=== PATIENT | female | born 1975 | race Caucasian/White ===

== ENCOUNTER 2022-12-26 13:59 | Outpatient (OUT) | payer OTHER, SELFPAY ==
--- NOTE | 2022-12-26 14:19 | PM.CN ---
Consult Note: HPI Data of Consult Patient: known to practice within the last 3 years Consult date: 12/26/22 Requesting Physician: Yuriy Goodson MD Primary Care Provider: Non-Staff Physician, Consult Narrative Reason for consult: Low back, bilateral leg pain Narrative: this is a pleasant 47-year-old female who presents for assessment. I will that she had significant relief after her recent lumbar epidural steroid injection, though she still notes persistence of pain throughout her low back that makes it difficult to complete her activities of daily life. She has undergone a lumbar fusion previously. We previously have discussed spinal cord stimulation therapy. She denies adverse medication side effects loss of bowel or bladder control. cc:: CC: Yuriy Goodson MD Review of Systems ROS Status of ROS 10 or more systems reviewed and unremarkable except as noted in history and below Meds Home Medications and Allergies Home Medications Medication Instructions Recorded Confirmed Type celecoxib 200 mg capsule (Celebrex) 200 mg PO BID 12/26/22 12/26/22 History fenofibrate nanocrystallized 145 145 mg PO DAILY 12/26/22 12/26/22 History mg tablet fluticasone furoate 200 1 inh inhalation DAILY 12/26/22 12/26/22 History mcg-vilanterol 25 mcg/dose inhalation powder (Breo Ellipta) hormone replacement pill {compound) 12/26/22 History montelukast 10 mg tablet 10 mg PO DAILY 12/26/22 12/26/22 History tirzepatide 5 mg/0.5 mL 5 mg subcut QWEEK 12/26/22 12/26/22 History subcutaneous pen injector (Mounjaro) vilazodone 40 mg tablet 40 mg PO DAILY 12/26/22 12/26/22 History Allergies Allergy/AdvReac Type Severity Reaction Status Date / Time No Known Drug Allergies Allergy Verified 12/26/22 13:30 Exam Constitutional Common normals: no apparent distress, oriented x3 and healthy appearing Respiratory Common normals: normal respiratory effort Effort & inspection: able to speak in complete sentences Back & Pelvis Other: this is a pleasant 47-year-old female who presents for assessment. I would that she had significant relief after her recent lumbar epidural steroid injection, though she still is quite debilitated due to her lumbar postlaminectomy syndrome. We have previously discussed that she would be an appropriate candidate for spinal cord stim ablation therapy, given her surgical history, multiple attempts at conservative measures, and desire to return to more significant activities of daily living. At this point, I will have her undergo psychiatric evaluation with the intention of proceeding with a spinal cord stim trial. She is in agreement with this plan. Vacations were reviewed, and no changes were made at this time. She will follow up after the evaluation is complete. Extremity Common normals: normal to inspection Neuro Common normals: oriented x3, CN's II-XII intact bilaterally and no focal motor deficits Psych Common normals: mental status grossly normal and cooperative
== END 2022-12-26 14:00 ==
LOC: PM 02-02 14:00
PROVIDERS: Visit Provider Anesthesiology
DX: M54.50 Low back pain, unspecified (principal); M79.605 Pain in left leg; M79.604 Pain in right leg
CPT/HCPCS: G0463

== ENCOUNTER 2023-02-27 11:59 | Outpatient (OUT) | payer OTHER, SELFPAY ==
--- NOTE | 2023-02-27 13:02 | PM.CN ---
Consult Note: HPI Data of Consult Patient: known to practice within the last 3 years Consult date: 02/27/23 Requesting Physician: Yuriy Goodson MD Primary Care Provider: Non-Staff Physician, Consult Narrative Reason for consult: low back, bilateral lower extremity pain Narrative: this is a pleasant 48-year-old female who presents for assessment. She notes worsening pain throughout her low back that radiates into the bilateral lower extremities. This is the same type of pain that she has been dealing with for several years, and she historically has had significant relief with lumbar epidural steroid injections periodically. This was most recently done in October of this year. This provided greater than eighty percent relief for over three months. She continues to engage in the course of provider directed home exercises, which she has done for over six weeks. She utilizes Celebrex, which provides mild relief. She recently underwent psychiatric evaluation with the anticipation of undergoing a spinal cord stimulator trial, and she was given a green light from a psychiatric perspective. She otherwise denies any medication side effects or loss of bowel or bladder control. cc:: CC: Yuriy Goodson MD Review of Systems ROS Status of ROS 10 or more systems reviewed and unremarkable except as noted in history and below Meds Home Medications and Allergies Home Medications Medication Instructions Recorded Confirmed Type celecoxib 200 mg capsule (Celebrex) 200 mg PO BID 12/26/22 12/26/22 History fenofibrate nanocrystallized 145 145 mg PO DAILY 12/26/22 12/26/22 History mg tablet fluticasone furoate 200 1 inh inhalation DAILY 12/26/22 12/26/22 History mcg-vilanterol 25 mcg/dose inhalation powder (Breo Ellipta) hormone replacement pill {compound) 12/26/22 History montelukast 10 mg tablet 10 mg PO DAILY 12/26/22 12/26/22 History tirzepatide 5 mg/0.5 mL 5 mg subcut QWEEK 12/26/22 12/26/22 History subcutaneous pen injector (Mounjaro) vilazodone 40 mg tablet 40 mg PO DAILY 12/26/22 12/26/22 History Allergies Allergy/AdvReac Type Severity Reaction Status Date / Time No Known Drug Allergies Allergy Verified 12/26/22 13:30 Exam Constitutional Common normals: no apparent distress, oriented x3 and healthy appearing Respiratory Common normals: normal respiratory effort Effort & inspection: able to speak in complete sentences Back & Pelvis Other: tenderness to palpation throughout the lumbar spine and paraspinal musculaature. Pain is elicited with fllexion, extension, and lateral rotation of the lumbar spine. Strength is noted to be unremarkable throughout the bilateral lower extremities except for decreased strength rated at 4/5 in the bilateral quadriceps femoris, anterior tibialis. sensation noted to be unremarkable throughout the bilateral lower extremities for dysesthesia in the bilateral L4, L5 dermatomal distributions. Coordination remains intact. Gait remains nonantalgic. Extremity Common normals: normal to inspection Neuro Common normals: oriented x3, CN's II-XII intact bilaterally and no focal motor deficits Psych Common normals: mental status grossly normal and cooperative Assessment and Plan Assessment and Plan (1) Lumbar stenosis with neurogenic claudication: (2) Lumbar postlaminectomy syndrome: Plan this is a pleasant 48-year-old female who presents for assessment. She has failed physical and medical modalities, as listed above. She continues to have significant pain that radiates from the low back and bilateral lower extremities. She has failed conservative measures, as noted above. Given her symptomatology of imaging findings, coupled with her previous relief, it is prudent to repeat bilateral L5-S1 transforaminal epidural steroid injections to provide analgesia. She is in agreement with this plan. She is also a good candidate for spinal cord stimulation trial, given her postlaminectomy syndrome and surgical history. She is in agreement with this plan. Medications were reviewed. I will continue her Celebrex and trial Flexeril 10 mg 3 times a day when necessary. She expressed understanding. She will follow up after the procedure is completed.
== END 2023-02-27 12:00 | disposition home or self-care (01) ==
LOC: PM 11:59
PROVIDERS: Visit Provider Anesthesiology
DX: M96.1 Postlaminectomy syndrome, not elsewhere classified (principal); M48.062 Spinal stenosis, lumbar region with neurogenic claudication
CPT/HCPCS: G0463

== ENCOUNTER 2023-03-13 08:54 | Day surgery (SDC) | payer OTHER, SELFPAY ==
[2023-03-13 09:28] VITALS: BP 140/96; PULSE 75; RESP 20; TEMP 35.8; O2SAT 96
[2023-03-13 09:31] LABS: Glucometer 95 mg/dL (74-106)
[2023-03-13] MEDS: TRIAMCINOLONE ACETONIDE 40 MG/ML VIAL 80 MG INJ (10:08)
[2023-03-13] MEDS: IOHEXOL 240 MG/ML - 10 ML VIAL INJ (10:08)
[2023-03-13] MEDS: BUPIVACAINE HCL 0.25% PF 25 MG/10 ML VIAL 4 ML INJ (10:08)
[2023-03-13] MEDS: LIDOCAINE HCL 2% PF 100 MG/5 ML VIAL INJ (10:08)
--- NOTE | 2023-03-13 10:11 | W.PM.PROCNOT ---
Date of procedure: 03/13/23 Pre-op diagnosis: Lumbar stenosis with neurogenic claudication, postlaminectomy syndrome Post-op diagnosis: same as pre-op Procedure: Procedure: Bilateral L5-S1 transforaminal epidural steroid injection Medications: Bupivacaine 0.25% 2cc, kenalog 40mg x2 The patient was seen and examined in the preoperative holding area.? Informed consent was obtained and placed on the chart.? Patient was brought to the medical procedure unit and placed in the prone position where a timeout was completed verifying the correct patient, procedure site, position, and planned special equipment using sterile aseptic technique.? Under direct fluoroscopic visualization a 25-gauge Quincke tipped spinal needle was advanced at level left L5-S1 to the designated neural foramen where contrast dye was injected to show adequate spread.? There was no evidence of vascular or adverse uptake.? Epidural spread was appreciated.? The above-mentioned injectate was then placed in a 1.5 mL aliquot preceded by negative aspiration.? The needle was removed. The same procedure, at the same level, was completed on the opposite side. ? Patient was taken to the postprocedural recovery area and monitored for an appropriate length of time before found suitable for discharge in the accompaniment of a responsible adult. Anesthesia: Local Surgeon: Yuriy Goodsno Pathology: none sent Condition: stable Disposition: no change
[2023-03-16 09:25] VITALS: BP 129/79; BP 133/75; PULSE 86; PULSE 87; RESP 20; O2SAT 97
== END 2023-03-13 10:17 | disposition home or self-care (01) ==
LOC: SURGOUT 08:55
PROVIDERS: Visit Provider Anesthesiology
DX: M48.062 Spinal stenosis, lumbar region with neurogenic claudication (principal); M96.1 Postlaminectomy syndrome, not elsewhere classified
CPT/HCPCS: 36415; 64483; 82948; Q9966

== ENCOUNTER 2023-03-23 08:07 | Outpatient (OUT) | payer OTHER, SELFPAY ==
--- NOTE | 2023-03-23 08:07 | PM.CN ---
Consult Note: HPI Data of Consult Patient: known to practice within the last 3 years Requesting Physician: Sade Nolan NP Primary Care Provider: Non-Staff Physician, MD Consult Narrative Reason for consult: f/u Narrative: Seema Root a pleasant 48 year old female who presents for evaluation of chronic low back pain post laminectomy. Patient recently underwent L5 TFESI with >80% pain relief and functional improvement ongoing. Patient set up for SCS trial with Dr Goodson cc:: CC: Sade Nolan NP Review of Systems ROS Status of ROS 10 or more systems reviewed and unremarkable except as noted in history and below Musculoskeletal Reports: back pain PFSH PFSH Medical History Surgical History Meds Home Medications and Allergies Home Medications Medication Instructions Recorded Confirmed Type celecoxib 200 mg capsule (Celebrex) 200 mg PO BID 12/26/22 03/13/23 History fenofibrate nanocrystallized 145 145 mg PO DAILY 12/26/22 03/13/23 History mg tablet fluticasone furoate 200 1 inh inhalation DAILY 12/26/22 03/13/23 History mcg-vilanterol 25 mcg/dose inhalation powder (Breo Ellipta) hormone replacement pill {compound) 12/26/22 History montelukast 10 mg tablet 10 mg PO DAILY 12/26/22 03/13/23 History tirzepatide 5 mg/0.5 mL 5 mg subcut QWEEK 12/26/22 03/13/23 History subcutaneous pen injector (Mounjaro) vilazodone 40 mg tablet 40 mg PO DAILY 12/26/22 03/13/23 History Allergies Allergy/AdvReac Type Severity Reaction Status Date / Time No Known Drug Allergies Allergy Verified 12/26/22 13:30 Exam Constitutional Documenting provider has reviewed patient's vital signs: yes Common normals: no apparent distress, oriented x3, healthy appearing, alert and well nourished General appearance: cooperative Nutritional appearance: obese HENMT Common normals: normocephalic, hearing grossly normal bilaterally and moist oral mucous membranes Head and scalp: normocephalic Eye Common normals: PERRL Pupil: PERRL Neck & C-Spine Common normals: full ROM General: normal visual inspection Chest Common normals: inspection of chest normal Respiratory Common normals: normal respiratory effort, no retractions and no use of accessory muscles Back & Pelvis Lumbar spine/lower back: ROM limited, pain with ROM, paraspinal muscle spasm and straight leg raise negative bilaterally Extremity Common normals: normal to inspection, full ROM and normal capillary refill Neuro Common normals: oriented x3, CN's II-XII intact bilaterally, moves all extremities, no focal motor deficits, no sensory deficits noted, deep tendon reflexes 2+ bilaterally and gait normal Sensorium/orientation: alert Motor exam: strength 5/5 throughout and no movement abnormalities noted Psych Common normals: mental status grossly normal, thought process normal, cooperative, affect normal, speech normal and activity/motor behavior normal Speech: normal speech Thought process: normal thought process Results Additional Findings Additional findings: I have checked an [facility] report on this patient today and there are no aberrancies noted in the prescribing history.?? A drug screen was completed and reviewed within the last year, and if there has not been a drug screen completed we ordered one today to monitor higher risk, state monitored pain medication use. As part of providing excellent, safe, comprehensive care, the following was completed at our patient's visit: 1. A medication reconciliation and review to ensure accurate knowledge of current/active medications, including asking our patients to inform us about any [id number] medications or herbal remedies/nutritional supplements/alternative remedies. 2. A review to specifically ensure our patients have had annual screening for: elevated body mass index (BMI), tobacco use, screening for depression, and screening for unhealthy alcohol use. When screening is concerning, patients are provided with education and the specific recommendation to discuss the concerning health issue and treatment options with their primary care provider. Assessment and Plan Assessment and Plan (1) Lumbar postlaminectomy syndrome: (2) Lumbar stenosis with neurogenic claudication: (3) Low back pain: (4) Diabetes 1.5, managed as type 2: (5) Asthma: (6) Anxiety: (7) BMI 40.0-44.9, adult: Assessment and Plan: The patient was counseled that proper dietary changes and consistent participation in a home exercise plan can lead to weight loss. Weight loss can help to improve functionality in patients with chronic pain.? Plan -continue follow up with Dr Giedraitis as scheduled for SCS trial -continue current medications -continue HEP -f/u as needed for future injections
== END 2023-03-23 08:08 | disposition home or self-care (01) ==
LOC: PM 08:07
PROVIDERS: Visit Provider Nurse Practitioner
DX: M96.1 Postlaminectomy syndrome, not elsewhere classified (principal); M48.062 Spinal stenosis, lumbar region with neurogenic claudication; M54.50 Low back pain, unspecified; E13.9 Other specified diabetes mellitus without complications; J45.909 Unspecified asthma, uncomplicated; F41.9 Anxiety disorder, unspecified
CPT/HCPCS: G0463